=== PATIENT | male | born 2000 | race Caucasian/White ===

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

== ENCOUNTER 2020-04-13 16:27 | Emergency (ER) | payer MEDICAID ==
[~2020-04-13] VITALS: Ht 188 cm; Wt 99.8 kg
[2020-04-13 16:43] VITALS: BP 130/77
[2020-04-13] MEDS ORDERED: LIDOCAINE 1% HCL (LOCAL ANESTH.) INJ 20ML MDV IJ ONE (17:00)
== END 2020-04-13 17:20 | disposition home or self-care (01) ==
LOC: ER 16:27
DX: S61.411A Laceration without foreign body of right hand, initial encounter (principal); W26.0XXA Contact with knife, initial encounter; Y93.89 Activity, other specified; Y92.89 Other specified places as the place of occurrence of the external cause; Y99.8 Other external cause status
CPT/HCPCS: 12002